=== PATIENT | male | born 1990 | race Caucasian/White ===

== ENCOUNTER 2021-11-09 21:40 | Inpatient (IN) | payer OTHER, SELFPAY ==
[2021-11-09 21:48] VITALS: BP 146/83; PULSE 104; RESP 19; TEMP 37.3; O2SAT 98; BMI 25.8
--- NOTE | 2021-11-09 22:00 | ED_ITS ---
HPI - Psych General Chief Complaint: Psychiatric Symptoms Stated Complaint: crisis Time Seen by Provider: 11/09/21 22:00 Source: patient Mode of arrival: EMS Limitations: no limitations History of Present Illness HPI Narrative: Patient section 12 from the [facility] clinic for paranoia, delusion responding to internal stimuli patient not sure why he is here asking for help not taking any medication patient denies any suicidal feeling Related Data Allergies Allergy/AdvReac Type Severity Reaction Status Date / Time No Known Allergies Allergy Unverified 03/20/21 14:35 Review of Systems Review of Systems: Yes all other systems are reviewed and are negative [facility] Social History Social History Advance Directives: No Advance Directives Information Provided: No Physical Exam Vital Signs: Vital Signs: Last Vital Signs Temp 99.2 F 11/09/21 21:48 Pulse 104 H 11/09/21 21:48 Resp 19 11/09/21 21:48 BP 146/83 H 11/09/21 21:48 Pulse Ox 98 11/09/21 21:48 O2 Del Method 11/09/21 21:48 BMI result Body Mass Index 25.8 Appearance: Alert. Oriented X3. No acute distress. Eyes: PERRLA, No Nystagmus ENT: Pharynx normal. Oral Mucosa moist Neck: Normal inspection. Neck supple. CVS: Normal heart rate and rhythm. Pulses normal. Respiratory: No respiratory distress. Equal air entry bilateral, no wheezing/rales/rhonchi Abdomen: Soft and nontender. Bowel sounds are present, no mass palpable, no CVA tenderness Skin: Skin warm and dry. Normal skin color. Normal skin turgor. Extremities: No lower extremity edema. No calf tenderness psych: Anxious denies any suicidal ideation no visual hallucination or auditory hallucination Neuro: Oriented X 3. No motor deficit. No sensory deficit.No cerebellar signs , cranial nerves II-XII intact MDM - Psych MDM Narrative Medical decision making narrative: Patient's Section 12 by crisis for delusion disorder etiology not very clear patient will be for bed search Lab Data Attestation: I reviewed the patient's lab results. Result diagrams: 11/09/21 22:31 11/09/21 22:31 Labs: Lab Results 09/18/22 09/18/22 09/18/22 Range/Units 22:17 22:31 22:31 WBC 8.6 (4.8-10.8) X10*3/uL RBC 4.99 (4.60-5.80) X10*6/uL Hgb 15.6 (14.0-18.0) g/dl Hct 45.3 (42.0-52.0) % MCV 90.8 (80.0-98.0) fL MCH 31.3 (27.0-33.0) pg MCHC 34.4 (31.0-36.0) g/dl RDW 12.5 (11.0-16.0) % Plt Count 302 (160-400) X10*3/uL MPV 9.1 L (9.4-12.4) fL Immature Gran % (Auto) 0.3 (0.0-0.4) % Neut % (Auto) 75.0 H (45-73) % Lymph % (Auto) 15.2 L (20-40) % [place] % (Auto) 7.0 (2-11) % Eos % (Auto) 1.9 (0-4) % Baso % (Auto) 0.6 (0-2) % Lymph # (Auto) 1.3 (1.2-4.9) X10*3/uL [place] # (Auto) 0.6 (0.1-1.2) X10*3/uL Eos # (Auto) 0.2 (0.0-0.4) X10*3/uL Baso # (Auto) 0.1 (0.0-0.2) X10*3/uL Abs Immat Gran (auto) 0.03 (0.00-0.03) X10*3/uL Absolute Neuts (auto) 6.5 (2.0-8.3) x10*3/uL Absolute Nucleated RBC 0.000 (0.0-0.012) X10*3/uL Nucleated RBC % (auto) 0.0 (0.0-0.2) /100WBC Sodium 143 (135-145) mmol/L Potassium 4.4 (3.3-5.1) mmol/L Chloride 105 (96-108) mmol/L Carbon Dioxide 26 (22-29) mmol/L Anion Gap 16 (12-20) BUN 9 (9-16) mg/dL Creatinine 1.00 (0.5-1.4) mg/dL Estim Creat Clear Calc 108.0 Estimated GFR > 60 Random Glucose 116 H (60-115) mg/dL Calcium 9.7 (8.4-10.2) mg/dL Total Bilirubin 1.0 (0.0-1.0) mg/dL AST 12 (5-37) U/L ALT 11 (0-40) U/L Alkaline Phosphatase 69 (39-117) U/L Total Protein 6.8 (6.5-8.0) g/dL Albumin 4.5 (3.5-5.0) g/dL COVID-19 ([facility]ISE) Negative (Negative) COVID-19 Clin Com See Note Discharge Plan Discharge Clinical Impression: Delusional disorder Patient Disposition: Still a Patient
[2021-11-09 22:36] LABS: MANUAL DIFF FLAG NO
[2021-11-09 22:38] LABS: Basophils Absolute Auto 0.1 X10*3/uL (0.0-0.2); Basophils Percent Auto 0.6 % (0-2); Eosinophils Absolute Auto 0.2 X10*3/uL (0.0-0.4); Eosinophils Percent Auto 1.9 % (0-4); Hematocrit 45.3 % (42.0-52.0); Hemoglobin 15.6 g/dl (14.0-18.0); Imm Gran Abs Auto 0.03 X10*3/uL (0.00-0.03); Imm Gran Pct Auto 0.3 % (0.0-0.4); Lymphocytes Absolute Auto 1.3 X10*3/uL (1.2-4.9); Lymphocytes Percent Auto 15.2 % (20-40); Mean Corpuscular HGB Conc 34.4 g/dl (31.0-36.0); Mean Corpuscular Hemoglobin 31.3 pg (27.0-33.0); Mean Corpuscular Volume 90.8 fL (80.0-98.0); Mean Platelet Volume 9.1 fL (9.4-12.4); Monocytes Absolute Auto 0.6 X10*3/uL (0.1-1.2); Neutrophils Absolute Auto 6.5 x10*3/uL (2.0-8.3); Platelet Count 302 X10*3/uL (160-400); Red Blood Count 4.99 X10*6/uL (4.60-5.80); Red Cell Distribution Width 12.5 % (11.0-16.0); White Blood Count 8.6 X10*3/uL (4.8-10.8)
[2021-11-09 22:52] LABS: COVID-19 Test Negative (Negative); IDNOW Serial# 16C4AD1C
[2021-11-09 22:55] LABS: Alanine Aminotransferase 11 U/L (0-40); Albumin Level 4.5 g/dL (3.5-5.0); Alkaline Phosphatase 69 U/L (39-117); Anion Gap 16 (12-20); Aspartate Amino Transferase 12 U/L (5-37); Blood Urea Nitrogen 9 mg/dL (9-16); Calcium 9.7 mg/dL (8.4-10.2); Carbon Dioxide 26 mmol/L (22-29); Chloride 105 mmol/L (96-108); Estimated Glomerular Filt Rate > 60; Glucose Random 116 mg/dL (60-115); Potassium 4.4 mmol/L (3.3-5.1); Sodium 143 mmol/L (135-145); Total Protein 6.8 g/dL (6.5-8.0)
--- NOTE | 2021-11-09 23:01 | ECG_ITS ---
Test Reason : MEDICAL CLEARANCE Blood Pressure : / mmHG Vent. Rate : 097 BPM Atrial Rate : 097 BPM P-R Int : 190 ms QRS Dur : 076 ms QT Int : 324 ms P-R-T Axes : 044 052 064 degrees QTc Int : 411 ms Normal sinus rhythm Normal ECG No previous ECGs available Referred By: Bc Coreas Electronically Signed By:ROSIE GAONA
[2021-11-09 23:29] VITALS: BP 146/88; PULSE 100; RESP 18; TEMP 37.3; O2SAT 97
[2021-11-10 04:58] LABS: Amphetamine Screen Urine Not Detected (Not Detect); Barbiturates, Urine Not Detected (Not Detect); Benzodiazepines Screen Urine Not Detected (Not Detect); Cannabinoid Screen Urine Not Detected (Not Detect); Cocaine Screen Urine Not Detected (Not Detect); Fentanyl, urine Not Detected (Not Detect); Opiate Screen Urine Not Detected (Not Detect); Phencyclidine Screen Urine Not Detected (Not Detect)
--- NOTE | 2021-11-10 05:48 | PC.NURSE ---
Patient was awake whole night, mostly sat in hallway calm talking to staff member, med rec completed/currently not on any medication, off his antidepressant for over 3 months, patient thinks he is OK and he doesn't have to be here, disposition per N from community is section 12 inpatient bed search, will continue to monitor.
--- NOTE | 2021-11-10 08:22 | PC.NURSE ---
PT WAS SITTING IN THE COMMUNITY AREA FOR MOST OF THE EVENING AND EARLY AM. HE ENGAGES IN APPROPRIATE CONVERSATION. HE IS SOFT SPOKEN AND ASKING WHAT THE PROCESS IS. HE RETURNED TO HIS ROOM . HIS MOTHER CALLED FOR AN UPDATE AND WAS REASSURED ABOUT HER SONS WELL BEING IN THE POD. AWAITING [facility] UPDATE
--- NOTE | 2021-11-10 16:42 | PC.NURSE ---
PT STILL HAS NOT SLEPT. HE REMAINS QUIET IN HIS ROOM
[2021-11-10 19:19] VITALS: BP 178/89; PULSE 99; RESP 18; TEMP 37.1; O2SAT 100
--- NOTE | 2021-11-10 20:40 | PC.NURSE ---
Addendum entered by Lupe Ocasio RN 11/10/21 20:42: Pt did not sign admission forms or consents. Original Note: Pt was admitted to from [facility] ED at 1915. Signed CV. Pt?s docn reports noncompliance with medication over months, paranoia, delusions, irritable, verbal aggression, denies SI/plan/intent.? UTOX: Negative all. Mood: Depressed; affect restricted. Does not make eye contact. No insight. Asking to leave, ?I?m not crazy.? ?Why am I here?? ? Substance use: Unable to assess.? MedHx: Unable to assess. Placed on high fall risk due to unknown hx. PsycheHx: Delusional disorder; MDD, single episode, unspecified.? VS at admission: 98.8, 99, 18, 178/89, 100%. ??During assessment pt is not engaged, looking at papers, asking why he is here and states, ?I don?t belong here.? Pt reports feeling unsafe but would not provide explanation. Offered prn for anxiety, pt did not answer. Not seen by provider.
[2021-11-11 08:30] VITALS: BP 140/86; PULSE 105; RESP 18; TEMP 36.7; O2SAT 98
[2021-11-11 09:20] LABS: Estimated Average Glucose 105 mg/dL; Hemoglobin A1c % 5.3 %
[2021-11-11 09:21] LABS: Cholesterol 146 mg/dL; HDL Cholesterol 52 mg/dL; LDL Cholesterol Calculated 78 mg/dl; Magnesium 1.9 mg/dL (1.6-2.6); Triglycerides 84 mg/dL
[2021-11-11 09:43] LABS: Free T4 (Free Thyroxine) 1.17 ng/dL (0.71-1.85); Thyroid Stimulating Hormone 1.24 uIU/mL (0.32-4.0)
[2021-11-11 10:07] LABS: Folate 6.3 ng/mL (> or = 4.0); Vitamin B12 422 pg/mL (200-900)
--- NOTE | 2021-11-11 13:32 | PC.NURSE ---
Patient went out [facility] door after staff opened door to leave unit. Refused to return unit, physical escort by staff back to unit. No injury to staff or patient reported or observed.
--- NOTE | 2021-11-11 16:18 | HO.PSYADMNOT ---
HPI Date of Service: 11/11/21 Chief Complaint: paranoia, delusional d/o HPI Subjective Notes: [place] Warning Narrative: pt called to the attention of crisis by his mother, who reported he was paranoid, delusional, irritable, and verbally aggressive and has been off of his medications for months now. she reported an acute worsening over the week prior to presentation. she stated he denied SI/HI to her. on interview with mold loft worker he expressed a great deal of anxiety about feeling trapped, feeling people are after him. he has no mental health providers currently. crisis staff described him as sporadically responding to internal stimuli. on interview with MD, pt is generally not cooeprative with answering questions, demonstrating clear paranoia and delusions about interviewer. in response to opening questions, pt replied, what happens if i refuse the hypnosis? he later began referring to this movie writer as Dr. Ayala, refusing to accept MD's identity as displayed on ID badge. he asserted MD has worked at [employer] and refused to accept MD's response that MD had never worked there. he demanded MD confess what he had done, but would not explain what he believed MD had done. he said, i'm sure you did the same shit to shagufta's kids, too, and would not explain who shagufta is. ultimately, typical historical information taken in a psychiatric evaluation was not able to be had. explained abdias's warning to pt, 3-day notice option. informed pt he believed pt has mental illness and should take medication and that such medication would be offered to him. per staff, pt did not sleep at all the night he was in the pod, nor did he sleep last night (at least two consecutive nights with no sleep). Past Psychiatric History: h/o outpt Tx with meds and therapist. details unknown. Medical Evaluation Reviewed: Yes PMFSH Family History: pt denied FH of mental illness or substance use disorder to crisis staff Social History: born in [place], raised mostly by his mother. has a younger brother. single, never , no children. unemployed. HS grad, had an IEP. bio-father not active in his life. Substance History: pt has denied substance use to crisis staff. Trauma History: christianne reported trauma to crisis staff but did not elaborate. Diagnostics Vital Signs (24Hr): Vital Signs - 24 hr 09/19/22 19:19 11/11/21 08:30 Temperature 98.8 F 98.1 F Pulse Rate 99 105 H Respiratory Rate 18 18 Blood Pressure 178/89 H 140/86 H Pulse Oximetry 100 98 Oxygen Delivery Method Room Air Room Air BMI result Body Mass Index 25.8 Labs Results: 11/09/21 22:31 11/09/21 22:31 Labs: Laboratory Results - last 48 hr 11/09/21 11/09/21 11/09/21 22:17 22:31 22:31 WBC 8.6 RBC 4.99 Hgb 15.6 Hct 45.3 MCV 90.8 MCH 31.3 MCHC 34.4 RDW 12.5 Plt Count 302 MPV 9.1 L Immature Gran % (Auto) 0.3 Neut % (Auto) 75.0 H Lymph % (Auto) 15.2 L [place] % (Auto) 7.0 Eos % (Auto) 1.9 Baso % (Auto) 0.6 Lymph # (Auto) 1.3 [place] # (Auto) 0.6 Eos # (Auto) 0.2 Baso # (Auto) 0.1 Abs Immat Gran (auto) 0.03 Absolute Neuts (auto) 6.5 Absolute Nucleated RBC 0.000 Nucleated RBC % (auto) 0.0 Sodium 143 Potassium 4.4 Chloride 105 Carbon Dioxide 26 Anion Gap 16 BUN 9 Creatinine 1.00 Estim Creat Clear Calc 108.0 Estimated GFR > 60 Random Glucose 116 H Estimat Average Glucose Hemoglobin A1c % Calcium 9.7 Magnesium Total Bilirubin 1.0 AST 12 ALT 11 Alkaline Phosphatase 69 Total Protein 6.8 Albumin 4.5 Triglycerides Cholesterol LDL Cholesterol, Calc HDL Cholesterol Vitamin B12 Folate TSH Free T4 Urine Opiates Screen Urine Fentanyl Screen Ur Barbiturates Screen Ur Phencyclidine Scrn Ur Amphetamines Screen U Benzodiazepines Scrn Urine Cocaine Screen U Marijuana (THC) Screen COVID-19 ([facility]ISE) Negative COVID-19 Clin Com See Note 11/10/21 11/11/21 11/11/21 04:31 08:52 08:52 WBC RBC Hgb Hct MCV MCH MCHC RDW Plt Count MPV Immature Gran % (Auto) Neut % (Auto) Lymph % (Auto) [place] % (Auto) Eos % (Auto) Baso % (Auto) Lymph # (Auto) [place] # (Auto) Eos # (Auto) Baso # (Auto) Abs Immat Gran (auto) Absolute Neuts (auto) Absolute Nucleated RBC Nucleated RBC % (auto) Sodium Potassium Chloride Carbon Dioxide Anion Gap BUN Creatinine Estim Creat Clear Calc Estimated GFR Random Glucose Estimat Average Glucose 105 Hemoglobin A1c % 5.3 Calcium Magnesium 1.9 Total Bilirubin AST ALT Alkaline Phosphatase Total Protein Albumin Triglycerides 84 Cholesterol 146 LDL Cholesterol, Calc 78 HDL Cholesterol 52 Vitamin B12 Folate TSH 1.24 Free T4 1.17 Urine Opiates Screen Not Detected Urine Fentanyl Screen Not Detected Ur Barbiturates Screen Not Detected Ur Phencyclidine Scrn Not Detected Ur Amphetamines Screen Not Detected U Benzodiazepines Scrn Not Detected Urine Cocaine Screen Not Detected U Marijuana (THC) Screen Not Detected COVID-19 ([facility]ISE) COVID-19 [facility] 11/11/21 08:52 WBC RBC Hgb Hct MCV MCH MCHC RDW Plt Count MPV Immature Gran % (Auto) Neut % (Auto) Lymph % (Auto) [place] % (Auto) Eos % (Auto) Baso % (Auto) Lymph # (Auto) [place] # (Auto) Eos # (Auto) Baso # (Auto) Abs Immat Gran (auto) Absolute Neuts (auto) Absolute Nucleated RBC Nucleated RBC % (auto) Sodium Potassium Chloride Carbon Dioxide Anion Gap BUN Creatinine Estim Creat Clear Calc Estimated GFR Random Glucose Estimat Average Glucose Hemoglobin A1c % Calcium Magnesium Total Bilirubin AST ALT Alkaline Phosphatase Total Protein Albumin Triglycerides Cholesterol LDL Cholesterol, Calc HDL Cholesterol Vitamin B12 422 Folate 6.3 TSH Free T4 Urine Opiates Screen Urine Fentanyl Screen Ur Barbiturates Screen Ur Phencyclidine Scrn Ur Amphetamines Screen U Benzodiazepines Scrn Urine Cocaine Screen U Marijuana (THC) Screen COVID-19 ([facility]) COVID-19 [facility] Meds/Allergies Meds Home Medications Medication Instructions Recorded Confirmed Type No Known Home Meds 11/10/21 11/10/21 History Allergies Allergies Allergy/AdvReac Type Severity Reaction Status Date / Time No Known Allergies Allergy Unverified 03/20/21 14:35 Mental Status Exam Mental Status Exam Narrative: agitated, bizarre, periods of delayed responses/action. PMA of apparent fidgetiness. not cooperative with interview. speech variable but generally increased in rate, normal amount, normal loudness, normal latency, normal prosody. thoughts disorganized, bizarre, paranoid, and delusional. affect hyper-intense, min-labile. mood not assessed. no SI/HI/AVH expressed. Assessment & Plan Assessment & Plan (1) Bipolar disorder: Status: Acute Code(s): F31.9 - Bipolar disorder, unspecified Plan offer zyprexa 10 mg at HS. T/C need for commitment. Patient educated on: diagnosis and medication risk/benefits Reason for continued inpatient stay Substantial Risk for: inability to function
[2021-11-12 10:00] VITALS: RESP 16; TEMP 36.4
--- NOTE | 2021-11-12 14:02 | P.PNPSI_ITS ---
Subjective Subjective Date of Service: 11/12/21 Reason For Visit: paranoia, delusional d/o Interim History: pt calm and variably cooperative. answers many questions with silence. seen with SW. MD explains diagnostic hypothesis. lots of long periods of MD and SW waiting for pt to answer questions, then moving on with other tacks. pt is vague and evasive in general, but ultimately states he will give the medication a try this evening (zyprexa 10 mg at HS). per staff, pt attempted to elope yesterday. poor PO intake. attended OT group. denies anxiety. feels not safe in here at all. paranoid, suspicious. refusing medications, refusing VS. afraid to shower for fear of being locked in. slept only about 2 hours. per SW, extremely labile, going from tearful to angry very quickly. Mental Status Exam Mental Status Exam Narrative: less agitated. bizarre, periods of very delayed responses/action. no PMA/PMR. variably cooperative with interview. speech variable but generally increased in rate, decr amount, normal loudness, incr latency, normal prosody. thoughts dis organized, bizarre, paranoid, and delusional. affect hyper-intense, non-labile. mood not assessed. no SI/HI/AVH expressed. Diagnostics Vital Signs (24Hr): BMI result Body Mass Index 25.8 Labs Results: 11/09/21 22:31 11/09/21 22:31 Labs: Laboratory Results - last 48 hr 11/11/21 11/11/21 11/11/21 08:52 08:52 08:52 Estimat Average Glucose 105 Hemoglobin A1c % 5.3 Magnesium 1.9 Triglycerides 84 Cholesterol 146 LDL Cholesterol, Calc 78 HDL Cholesterol 52 Vitamin B12 422 Folate 6.3 TSH 1.24 Free T4 1.17 Medications Medications Current Medications Acetaminophen (Acetaminophen 325 Mg Tablet) 650 mg PO Q6H PRN PRN Reason: Headache/Pain Mild Scale (1-3) Al Hydroxide/Mg Hydroxide (Magnesium Hydrox/Alum Hydrox 30 Ml Oral.Susp) 30 ml PO Q6H PRN PRN Reason: Heartburn/Nausea Hydroxyzine HCl (Hydroxyzine Hcl 25 Mg Tablet) 25 mg PO Q6H PRN PRN Reason: Anxiety Magnesium Hydroxide (Milk Of Magnesia 30 Ml Oral.Susp) 30 ml PO DAILY PRN PRN Reason: Constipation Olanzapine (Olanzapine Odt 10 Mg Tab.Rapdis) 10 mg TRANSLINGU BEDTIME SMITHA Last Admin: 11/11/21 21:30 Dose: Not Given Trazodone HCl (Trazodone Hcl 50 Mg Tablet) 50 mg PO BEDTIME PRN PRN Reason: Insomnia Allergies Allergies Allergy/AdvReac Type Severity Reaction Status Date / Time No Known Allergies Allergy Unverified 03/20/21 14:35 Assessment & Plan Assessment & Plan (1) Bipolar disorder: Status: Acute Code(s): F31.9 - Bipolar disorder, unspecified Plan offer zyprexa 10 mg at HS. T/C need for commitment. I spent ___25___ minutes with the patient and/or on the patient floor today, greater than?50% of which was spent counseling/coordinating care. Patient educated on: diagnosis Reason for contiued inpatient stay Substantial Risk for: harm to self, harm to others, inability to function and rapid decompensation
[2021-11-12 19:20] VITALS: BP 134/92; PULSE 99; RESP 16; TEMP 36.7; O2SAT 100
[2021-11-12] MEDS: OLANZapine ODT 10 MG TAB.RAPDIS TRANSLINGU (20:56)
[2021-11-13 08:30] VITALS: BP 140/92; PULSE 78; RESP 18; TEMP 36.6; O2SAT 100
--- NOTE | 2021-11-13 14:49 | P.PNPSI_ITS ---
Subjective Subjective Date of Service: 11/13/21 Reason For Visit: paranoia, delusional d/o Subjective Notes: Conditional Voluntary Interim History: Pt thought blocking-staring, delayed response. He does not answer much of the questions. He reports he agreed to take medications last night, does not think it works. When asked about what he hopes medications to help him with, he just stares and turns to the side. some degree of catatonic s/s- agrees to try ativan challenge. Review of Systems Review of Systems Yes all other systems are reviewed and are negative Mental Status Exam Mental Status Exam Narrative: less agitated. bizarre, periods of very delayed responses/action. no PMA/PMR. variably cooperative with interview. speech variable but generally increased in rate, decr amount, normal loudness, incr latency, normal prosody. thoughts disorganized, bizarre, paranoid, and delusional. affect hyper-intense, non- labile. mood not assessed. no SI/HI/AVH expressed. Diagnostics Vital Signs (24Hr): Vital Signs - 24 hr 11/12/21 19:20 11/13/21 08:30 Temperature 98.1 F 97.8 F Pulse Rate 99 78 Respiratory Rate 16 18 Blood Pressure 134/92 H 140/92 H Pulse Oximetry 100 100 Oxygen Delivery Method Room Air Room Air BMI result Body Mass Index 25.8 Labs Results: 11/09/21 22:31 11/09/21 22:31 Medications Medications Current Medications Acetaminophen (Acetaminophen 325 Mg Tablet) 650 mg PO Q6H PRN PRN Reason: Headache/Pain Mild Scale (1-3) Al Hydroxide/Mg Hydroxide (Magnesium Hydrox/Alum Hydrox 30 Ml Oral.Susp) 30 ml PO Q6H PRN PRN Reason: Heartburn/Nausea Hydroxyzine HCl (Hydroxyzine Hcl 25 Mg Tablet) 25 mg PO Q6H PRN PRN Reason: Anxiety Magnesium Hydroxide (Milk Of Magnesia 30 Ml Oral.Susp) 30 ml PO DAILY PRN PRN Reason: Constipation Olanzapine (Olanzapine Odt 10 Mg Tab.Rapdis) 10 mg TRANSLINGU BEDTIME SMITHA Last Admin: 11/12/21 20:56 Dose: 10 mg Trazodone HCl (Trazodone Hcl 50 Mg Tablet) 50 mg PO BEDTIME PRN PRN Reason: Insomnia Allergies Allergies Allergy/AdvReac Type Severity Reaction Status Date / Time No Known Allergies Allergy Unverified 03/20/21 14:35 Assessment & Plan Assessment & Plan (1) Bipolar disorder: Status: Acute Code(s): F31.9 - Bipolar disorder, unspecified Plan offer zyprexa 10 mg at HS. T/C need for commitment. 11/13 continue olanzapine, given ativan for catatonia s/s thought blocking, blank stare, delayed response. I spent minutes with the patient and/or on the patient floor today, greater than?50% of which was spent counseling/coordinating care. Reason for contiued inpatient stay Substantial Risk for: inability to function
[2021-11-13] MEDS: LORazepam 1 MG TABLET 2 MG PO (15:46)
[2021-11-13 19:00] VITALS: BP 143/78; PULSE 103; RESP 16; TEMP 36.7; O2SAT 100
[2021-11-13] MEDS: OLANZapine ODT 10 MG TAB.RAPDIS TRANSLINGU (20:39)
[2021-11-13] MEDS: LORazepam 1 MG TABLET PO (20:39)
[2021-11-14 08:30] VITALS: RESP 18
[2021-11-14 10:00] VITALS: PULSE 89; RESP 18; TEMP 36.7; O2SAT 100
[2021-11-14] MEDS: LORazepam 1 MG TABLET PO ×4 (10:13→20:43)
--- NOTE | 2021-11-14 14:55 | HO.PSYCHPN ---
Subjective Subjective Date of Service: 11/14/21 Reason For Visit: paranoia, delusional d/o Interim History: amenable to come for interview. more slowed down than day of admission. long pauses, no agitated speech. he feels he is sleeping well, states his mood is OK, feeling safe on unit with peers and staff. per staff, guarded, paranoid, napping. ativan 2 mg at 3:30 pm. afterward doing laundry, yoga, stretching. Mental Status Exam Mental Status Exam Narrative: not agitated. bizarre, periods of very delayed responses/action. no PMA/PMR. variably cooperative with interview. speech decr in rate, decr amount, normal loudness, incr latency, normal prosody. thoughts linear in very brief responses to questions. no expression of delusions or paranoia. affect hypo-intense, non-labile. mood OK. no SI/HI/AVH expressed. Diagnostics Vital Signs (24Hr): Vital Signs - 24 hr 11/13/21 19:00 11/14/21 08:30 11/14/21 10:00 Temperature 98.1 F 98.1 F Pulse Rate 103 H 89 Respiratory Rate 16 18 18 Blood Pressure 143/78 H Pulse Oximetry 100 100 Oxygen Delivery Method Room Air Room Air BMI result Body Mass Index 25.8 Labs Results: 11/09/21 22:31 11/09/21 22:31 Medications Medications Current Medications Acetaminophen (Acetaminophen 325 Mg Tablet) 650 mg PO Q6H PRN PRN Reason: Headache/Pain Mild Scale (1-3) Al Hydroxide/Mg Hydroxide (Magnesium Hydrox/Alum Hydrox 30 Ml Oral.Susp) 30 ml PO Q6H PRN PRN Reason: Heartburn/Nausea Hydroxyzine HCl (Hydroxyzine Hcl 25 Mg Tablet) 25 mg PO Q6H PRN PRN Reason: Anxiety Lorazepam (Lorazepam 1 Mg Tablet) 1 mg PO QID [facility] Last Admin: 11/14/21 14:02 Dose: 1 mg Magnesium Hydroxide (Milk Of Magnesia 30 Ml Oral.Susp) 30 ml PO DAILY PRN PRN Reason: Constipation Olanzapine (Olanzapine Odt 10 Mg Tab.Rapdis) 10 mg TRANSLINGU BEDTIME [facility] Last Admin: 11/13/21 20:39 Dose: 10 mg Trazodone HCl (Trazodone Hcl 50 Mg Tablet) 50 mg PO BEDTIME PRN PRN Reason: Insomnia Allergies Allergies Allergy/AdvReac Type Severity Reaction Status Date / Time No Known Allergies Allergy Unverified 03/20/21 14:35 Assessment & Plan Assessment & Plan (1) Bipolar disorder: Status: Acute Code(s): F31.9 - Bipolar disorder, unspecified Plan offer zyprexa 10 mg at HS. T/C need for commitment. 11/13 continue olanzapine, given ativan for catatonia s/s thought blocking, blank stare, delayed response. 11/14: pt compliant with HS zyprexa x 2 nights. slowed down, looking catatonic, seems to have responded to ativan started yesterday. ativan 1 TID yesterday escalated to 1 QID today due to continuing to appear quite slowed this morning after initial ativan dose of the day. I spent ___20___ minutes with the patient and/or on the patient floor today, greater than?50% of which was spent counseling/coordinating care. Reason for contiued inpatient stay Substantial Risk for: inability to function and rapid decompensation
[2021-11-14 18:00] VITALS: BP 131/71; PULSE 97; RESP 14; TEMP 36.7; O2SAT 99
[2021-11-14] MEDS: OLANZapine ODT 10 MG TAB.RAPDIS TRANSLINGU (20:43)
[2021-11-15 06:00] VITALS: BP 135/87; PULSE 102; RESP 18; TEMP 36.8; O2SAT 98
--- NOTE | 2021-11-15 08:07 | P.PNPSI_ITS ---
Subjective Subjective Date of Service: 11/15/21 Reason For Visit: paranoia, delusional d/o Subjective Notes: Conditional Voluntary Healthcare Proxy: No Guardianship: No Medical Problems Affecting Mental Status: No Interim History: Patient was seen and discussed in rounds today. Records and plans were reviewed. He continues to be mostly isolative, guarded with some paranoid ideations and delusions. Affect is flat. He does have some thought blocking. Attending some groups including art. He is med compliant. Eating and sleeping adequately. No complaints or side effects. No changes were implemented today. He had some questions about his Ativan order which was clarified and he was comfortable with that. Side effects from medications: No Review of Systems Review of Systems Yes all other systems are reviewed and are negative Diagnostics Vital Signs (24Hr): Vital Signs - 24 hr 11/14/21 08:30 11/14/21 10:00 11/14/21 18:00 Temperature 98.1 F 98.1 F Pulse Rate 89 97 Respiratory Rate 18 18 14 Blood Pressure 131/71 Pulse Oximetry 100 99 Oxygen Delivery Method Room Air Room Air BMI result Body Mass Index 25.8 Labs Results: 11/09/21 22:31 11/09/21 22:31 Medications Medications Current Medications Acetaminophen (Acetaminophen 325 Mg Tablet) 650 mg PO Q6H PRN PRN Reason: Headache/Pain Mild Scale (1-3) Al Hydroxide/Mg Hydroxide (Magnesium Hydrox/Alum Hydrox 30 Ml Oral.Susp) 30 ml PO Q6H PRN PRN Reason: Heartburn/Nausea Hydroxyzine HCl (Hydroxyzine Hcl 25 Mg Tablet) 25 mg PO Q6H PRN PRN Reason: Anxiety Lorazepam (Lorazepam 1 Mg Tablet) 1 mg PO QID [facility] Last Admin: 11/14/21 20:43 Dose: 1 mg Magnesium Hydroxide (Milk Of Magnesia 30 Ml Oral.Susp) 30 ml PO DAILY PRN PRN Reason: Constipation Olanzapine (Olanzapine Odt 10 Mg Tab.Rapdis) 10 mg TRANSLINGU BEDTIME [facility] Last Admin: 11/14/21 20:43 Dose: 10 mg Trazodone HCl (Trazodone Hcl 50 Mg Tablet) 50 mg PO BEDTIME PRN PRN Reason: Insomnia Allergies Allergies Allergy/AdvReac Type Severity Reaction Status Date / Time No Known Allergies Allergy Unverified 03/20/21 14:35 Assessment & Plan Assessment & Plan (1) Bipolar disorder: Status: Acute Code(s): F31.9 - Bipolar disorder, unspecified Plan offer zyprexa 10 mg at HS. T/C need for commitment. 11/13 continue olanzapine, given ativan for catatonia s/s thought blocking, blank stare, delayed response. 11/14: pt compliant with HS zyprexa x 2 nights. slowed down, looking catatonic, seems to have responded to ativan started yesterday. ativan 1 TID yesterday escalated to 1 QID today due to continuing to appear quite slowed this morning after initial ativan dose of the day. 11/15: Continue current regimen and plans I spent minutes with the patient and/or on the patient floor today, greater than?50% of which was spent counseling/coordinating care. Patient educated on: medication risk/benefits Reason for contiued inpatient stay Substantial Risk for: med/psych decompensation
[2021-11-15] MEDS: LORazepam 1 MG TABLET PO ×4 (11:20→21:07)
[2021-11-15 18:00] VITALS: BP 124/83; PULSE 98; RESP 16; TEMP 36.7; O2SAT 100
[2021-11-15] MEDS: OLANZapine ODT 10 MG TAB.RAPDIS TRANSLINGU (21:07)
--- NOTE | 2021-11-16 01:04 | PC.NURSE ---
Pt A&O, INAD, cooperative with assessment and medication adherent. Denies SI/HI/AH/VH/safety concerns. Slow responses but appears more engaged and interactive than during prior assessments. Pt asking about discharging. He was encouraged to talk with social workers Wednesday and agrees.
[2021-11-16 09:07] VITALS: BP 123/90; PULSE 73; RESP 18; TEMP 36.4; O2SAT 98
--- NOTE | 2021-11-16 09:28 | HO.PSYCHPN ---
Subjective Subjective Date of Service: 11/16/21 Reason For Visit: paranoia, delusional d/o Subjective Notes: Conditional Voluntary Healthcare Proxy: No Guardianship: No Medical Problems Affecting Mental Status: No Interim History: Patient was seen and discussed in rounds today. Records and plans were reviewed. He has been mostly isolative and continues to be guarded with minimal social interaction. He had some questions about his discharge plans which I suggested talking to the staff tomorrow. He has been flat in his affect and some thought blocking still is present. Eating and sleeping adequately. No complaints or side effects. No changes were done today Side effects from medications: No Review of Systems Review of Systems Yes all other systems are reviewed and are negative Mental Status Exam Mental Status Exam Narrative: not agitated. bizarre, periods of very delayed responses/action. no PMA/PMR. variably cooperative with interview. speech decr in rate, decr amount, normal loudness, incr latency, normal prosody. thoughts linear in very brief responses to questions. no expression of delusions or paranoia. affect hypo-intense, non-labile. mood OK. no SI/HI/AVH expressed. Diagnostics Vital Signs (24Hr): Vital Signs - 24 hr 11/15/21 18:00 11/16/21 09:07 Temperature 98.1 F 97.6 F Pulse Rate 98 73 Respiratory Rate 16 18 Blood Pressure 124/83 123/90 H Pulse Oximetry 100 98 Oxygen Delivery Method Room Air Room Air BMI result Body Mass Index 25.8 Labs Results: 11/09/21 22:31 11/09/21 22:31 Medications Medications Current Medications Acetaminophen (Acetaminophen 325 Mg Tablet) 650 mg PO Q6H PRN PRN Reason: Headache/Pain Mild Scale (1-3) Al Hydroxide/Mg Hydroxide (Magnesium Hydrox/Alum Hydrox 30 Ml Oral.Susp) 30 ml PO Q6H PRN PRN Reason: Heartburn/Nausea Hydroxyzine HCl (Hydroxyzine Hcl 25 Mg Tablet) 25 mg PO Q6H PRN PRN Reason: Anxiety Lorazepam (Lorazepam 1 Mg Tablet) 1 mg PO QID [facility] Last Admin: 11/15/21 21:07 Dose: 1 mg Magnesium Hydroxide (Milk Of Magnesia 30 Ml Oral.Susp) 30 ml PO DAILY PRN PRN Reason: Constipation Olanzapine (Olanzapine Odt 10 Mg Tab.Rapdis) 10 mg TRANSLINGU BEDTIME [facility] Last Admin: 11/15/21 21:07 Dose: 10 mg Trazodone HCl (Trazodone Hcl 50 Mg Tablet) 50 mg PO BEDTIME PRN PRN Reason: Insomnia Allergies Allergies Allergy/AdvReac Type Severity Reaction Status Date / Time No Known Allergies Allergy Unverified 03/20/21 14:35 Assessment & Plan Assessment & Plan (1) Bipolar disorder: Status: Acute Code(s): F31.9 - Bipolar disorder, unspecified Plan offer zyprexa 10 mg at HS. T/C need for commitment. 11/13 continue olanzapine, given ativan for catatonia s/s thought blocking, blank stare, delayed response. 11/14: pt compliant with HS zyprexa x 2 nights. slowed down, looking catatonic, seems to have responded to ativan started yesterday. ativan 1 TID yesterday escalated to 1 QID today due to continuing to appear quite slowed this morning after initial ativan dose of the day. 11/15: Continue current regimen and plans 11/16: Continue current plans and regimen I spent minutes with the patient and/or on the patient floor today, greater than?50% of which was spent counseling/coordinating care. Reason for contiued inpatient stay Substantial Risk for: med/psych decompensation
[2021-11-16] MEDS: LORazepam 1 MG TABLET PO ×4 (09:31→21:33)
[2021-11-16 21:32] VITALS: BP 124/82; PULSE 116; RESP 16; TEMP 36.7; O2SAT 97
[2021-11-16] MEDS: OLANZapine ODT 10 MG TAB.RAPDIS TRANSLINGU (21:33)
[2021-11-16] MEDS: Acetaminophen 325 MG TABLET 650 MG PO (21:36)
[2021-11-17] MEDS: hydrOXYzine HCL 25 MG TABLET PO (01:38)
[2021-11-17] MEDS: LORazepam 1 MG TABLET PO ×4 (09:02→22:26)
[2021-11-17 09:21] VITALS: BP 128/78; PULSE 82; RESP 16; TEMP 36.7; O2SAT 99
[2021-11-17] MEDS: Lithium Carbonate ER 450 MG TABLET.ER PO ×2 (10:41→22:24)
--- NOTE | 2021-11-17 12:13 | P.PNPSI_ITS ---
Subjective Subjective Date of Service: 11/17/21 Reason For Visit: paranoia, delusional d/o Interim History: less paranoid, more cooperative today. discuss bipolar D/O Dx hypothesis and Tx thereof. willing to try lithium. R/B discussed, including renal damage. planning to start ativan taper tomorrow. no other complaints or requests, asks how much longer he will need to stay in order for lithium trial. per staff, some difficulty sleeping. otherwise no notable events or behaviors. Mental Status Exam Mental Status Exam Narrative: not agitated. less bizarre, periods of delayed responses/action. no PMA/PMR. generally cooperative with interview. speech decr in rate, decr amount, normal loudness, incr latency, flattened prosody. thoughts linear. no overt expression of delusions or paranoia, but remains mistrustful and guarded. affect hypo-intense, non-labile. mood OK. no SI/HI/AVH expressed. Diagnostics Vital Signs (24Hr): Vital Signs - 24 hr 11/16/21 21:32 11/17/21 09:21 Temperature 98.1 F 98.1 F Pulse Rate 116 H 82 Respiratory Rate 16 16 Blood Pressure 124/82 128/78 Pulse Oximetry 97 99 Oxygen Delivery Method Room Air Room Air BMI result Body Mass Index 25.8 Labs Results: 11/09/21 22:31 11/09/21 22:31 Medications Medications Current Medications Acetaminophen (Acetaminophen 325 Mg Tablet) 650 mg PO Q6H PRN PRN Reason: Headache/Pain Mild Scale (1-3) Last Admin: 11/16/21 21:36 Dose: 650 mg Al Hydroxide/Mg Hydroxide (Magnesium Hydrox/Alum Hydrox 30 Ml Oral.Susp) 30 ml PO Q6H PRN PRN Reason: Heartburn/Nausea Hydroxyzine HCl (Hydroxyzine Hcl 25 Mg Tablet) 25 mg PO Q6H PRN PRN Reason: Anxiety Last Admin: 11/17/21 01:38 Dose: 25 mg [place] Carbonate (Loop Carbonate Er 450 Mg Tablet.Er) 450 mg PO BID [facility] Last Admin: 11/17/21 10:41 Dose: 450 mg Lorazepam (Lorazepam 1 Mg Tablet) 1 mg PO QID [facility] Last Admin: 11/17/21 09:02 Dose: 1 mg Magnesium Hydroxide (Milk Of Magnesia 30 Ml Oral.Susp) 30 ml PO DAILY PRN PRN Reason: Constipation Olanzapine (Olanzapine Odt 10 Mg Tab.Rapdis) 10 mg TRANSLINGU BEDTIME [facility] Last Admin: 11/16/21 21:33 Dose: 10 mg Olanzapine (Olanzapine Odt 10 Mg Tab.Rapdis) 5 mg TRANSLINGU BEDTIME [facility] Allergies Allergies Allergy/AdvReac Type Severity Reaction Status Date / Time No Known Allergies Allergy Unverified 03/20/21 14:35 Assessment & Plan Assessment & Plan (1) Bipolar disorder: Status: Acute Code(s): F31.9 - Bipolar disorder, unspecified Plan offer zyprexa 10 mg at HS. T/C need for commitment. 11/13 continue olanzapine, given ativan for catatonia s/s thought blocking, blank stare, delayed response. 11/14: pt compliant with HS zyprexa x 2 nights. slowed down, looking catatonic, seems to have responded to ativan started yesterday. ativan 1 TID yesterday escalated to 1 QID today due to continuing to appear quite slowed this morning after initial ativan dose of the day. 11/15: Continue current regimen and plans 11/16: Continue current plans and regimen 11/17: start lithium 450 BID. begin ativan taper tomorrow. add zyprexa 5 QHS PRN insomnia. calm, cooperative, no overt paranoia or delusional content. I spent ___25___ minutes with the patient and/or on the patient floor today, greater than?50% of which was spent counseling/coordinating care. Patient educated on: diagnosis and medication risk/benefits Reason for contiued inpatient stay Substantial Risk for: inability to function and rapid decompensation
--- NOTE | 2021-11-17 17:03 | PC.NURSE ---
Patient reports that he has never smoked tobacco
[2021-11-17 22:00] VITALS: BP 150/98; PULSE 98; RESP 18; TEMP 36.8; O2SAT 97
[2021-11-17] MEDS: OLANZapine ODT 10 MG TAB.RAPDIS TRANSLINGU (22:25)
[2021-11-17] MEDS: OLANZapine ODT 10 MG TAB.RAPDIS 5 MG TRANSLINGU (22:25)
[2021-11-18] MEDS: LORazepam 1 MG TABLET PO ×3 (09:09→21:06)
[2021-11-18] MEDS: Lithium Carbonate ER 450 MG TABLET.ER PO ×2 (09:09→21:07)
[2021-11-18 10:46] VITALS: BP 124/79; PULSE 80; RESP 16; TEMP 36.6; O2SAT 98
--- NOTE | 2021-11-18 14:09 | P.PNPSI_ITS ---
Subjective Subjective Date of Service: 11/18/21 Reason For Visit: paranoia, delusional d/o Interim History: faster responses, less irritable and paranoid. still carrying around his belongings in a paper bag. mood a little better, which he attributes to being not as in my head, i guess. agreeable to taper ativan, going from 1 mg QID to 1 mg TID today. per staff, carrying things in bag. attended art group. guarded. internally preoccupied. asking for his crystals. vague, evasive. denies AVH. med-compliant. Mental Status Exam Mental Status Exam Narrative: not agitated. fewer periods of delayed responses/action. no PMA/PMR. generally cooperative with interview. speech decr in rate, decr amount, normal loudness, incr latency, flattened prosody. thoughts linear. no overt expression of delusions or paranoia, but seems less mistrustful and guarded. affect hypo-intense, non-labile. mood a little better. no SI/HI/AVH expressed. Diagnostics Vital Signs (24Hr): Vital Signs - 24 hr 11/17/21 22:00 11/18/21 10:46 Temperature 98.3 F 97.9 F Pulse Rate 98 80 Respiratory Rate 18 16 Blood Pressure 150/98 H 124/79 Pulse Oximetry 97 98 Oxygen Delivery Method Room Air Room Air BMI result Body Mass Index 25.8 Labs Results: 11/09/21 22:31 11/09/21 22:31 Medications Medications Current Medications Acetaminophen (Acetaminophen 325 Mg Tablet) 650 mg PO Q6H PRN PRN Reason: Headache/Pain Mild Scale (1-3) Last Admin: 11/16/21 21:36 Dose: 650 mg Al Hydroxide/Mg Hydroxide (Magnesium Hydrox/Alum Hydrox 30 Ml Oral.Susp) 30 ml PO Q6H PRN PRN Reason: Heartburn/Nausea Hydroxyzine HCl (Hydroxyzine Hcl 25 Mg Tablet) 25 mg PO Q6H PRN PRN Reason: Anxiety Last Admin: 11/17/21 01:38 Dose: 25 mg [place] Carbonate ([place] Carbonate Er 450 Mg Tablet.Er) 450 mg PO BID [facility] Last Admin: 11/18/21 09:09 Dose: 450 mg Lorazepam (Lorazepam 1 Mg Tablet) 1 mg PO TID [facility] Magnesium Hydroxide (Milk Of Magnesia 30 Ml Oral.Susp) 30 ml PO DAILY PRN PRN Reason: Constipation Olanzapine (Olanzapine Odt 10 Mg Tab.Rapdis) 10 mg TRANSLINGU BEDTIME [facility] Last Admin: 11/17/21 22:25 Dose: 10 mg Olanzapine (Olanzapine Odt 10 Mg Tab.Rapdis) 5 mg TRANSLINGU BEDTIME [facility] Last Admin: 11/17/21 22:25 Dose: 5 mg Allergies Allergies Allergy/AdvReac Type Severity Reaction Status Date / Time No Known Allergies Allergy Unverified 03/20/21 14:35 Assessment & Plan Assessment & Plan (1) Bipolar disorder: Status: Acute Code(s): F31.9 - Bipolar disorder, unspecified Plan offer zyprexa 10 mg at HS. T/C need for commitment. 11/13 continue olanzapine, given ativan for catatonia s/s thought blocking, blank stare, delayed response. 11/14: pt compliant with HS zyprexa x 2 nights. slowed down, looking catatonic, seems to have responded to ativan started yesterday. ativan 1 TID yesterday escalated to 1 QID today due to continuing to appear quite slowed this morning after initial ativan dose of the day. 11/15: Continue current regimen and plans 11/16: Continue current plans and regimen 11/17: start lithium 450 BID. begin ativan taper tomorrow. add zyprexa 5 QHS PRN insomnia. calm, cooperative, no overt paranoia or delusional content. 11/18: decrease ativan to 1 mg TID, otherwise continue current mgmt. I spent ___20___ minutes with the patient and/or on the patient floor today, greater than?50% of which was spent counseling/coordinating care. Reason for contiued inpatient stay Substantial Risk for: inability to function and rapid decompensation
[2021-11-18 21:05] VITALS: BP 135/77; PULSE 104; RESP 16; TEMP 36.7; O2SAT 97
[2021-11-18] MEDS: OLANZapine ODT 10 MG TAB.RAPDIS TRANSLINGU (21:06)
[2021-11-18] MEDS: OLANZapine ODT 10 MG TAB.RAPDIS 5 MG TRANSLINGU (21:07)
--- NOTE | 2021-11-18 21:20 | PC.NURSE ---
PT SIGNED 3-DAY ON 11/18. 3-DAY UP ON 11/21.
[2021-11-19] MEDS: LORazepam 1 MG TABLET PO ×2 (08:11→21:11)
[2021-11-19] MEDS: Lithium Carbonate ER 450 MG TABLET.ER PO ×2 (08:11→21:10)
[2021-11-19 08:36] VITALS: BP 133/87; PULSE 86; RESP 16; TEMP 36.7; O2SAT 100
--- NOTE | 2021-11-19 13:08 | P.PNPSI_ITS ---
Subjective Subjective Date of Service: 11/19/21 Reason For Visit: paranoia, delusional d/o Interim History: pt reports feeling not bad. states he is sleeping well, which is what staff report as well. feels his mood state is about the same as yesterday. remains suspicious and paranoid, but more engageable than early on. planning to discharge wednesday, not able to be dissuaded from such. discuss lithium at some length, encourage pt to take 1050. he requests lithium med ed sheet prior to agreeing. per staff, attending groups. denies anx/dep. eating and sleeping. cooperative, calm. carrying bag of belongings around with him. more social than earlier on. Mental Status Exam Mental Status Exam Narrative: not agitated. far less delayed. no PMA/PMR. generally cooperative with interview. speech decr in rate, decr amount, normal loudness, incr latency, flattened prosody. thoughts linear. no overt expression of delusions or paranoia, but seems less mistrustful and guarded. affect hypo-intense, non- labile. mood a little better. no SI/HI/AVH expressed. Diagnostics Vital Signs (24Hr): Vital Signs - 24 hr 11/18/21 21:05 11/19/21 08:36 Temperature 98.1 F 98.1 F Pulse Rate 104 H 86 Respiratory Rate 16 16 Blood Pressure 135/77 133/87 Pulse Oximetry 97 100 Oxygen Delivery Method Room Air Room Air BMI result Body Mass Index 25.8 Labs Results: 11/09/21 22:31 11/09/21 22:31 Medications Medications Current Medications Acetaminophen (Acetaminophen 325 Mg Tablet) 650 mg PO Q6H PRN PRN Reason: Headache/Pain Mild Scale (1-3) Last Admin: 11/16/21 21:36 Dose: 650 mg Al Hydroxide/Mg Hydroxide (Magnesium Hydrox/Alum Hydrox 30 Ml Oral.Susp) 30 ml PO Q6H PRN PRN Reason: Heartburn/Nausea Hydroxyzine HCl (Hydroxyzine Hcl 25 Mg Tablet) 25 mg PO Q6H PRN PRN Reason: Anxiety Last Admin: 11/17/21 01:38 Dose: 25 mg [place] Carbonate ([place] Carbonate Er 450 Mg Tablet.Er) 450 mg PO BID [facility] Last Admin: 11/19/21 08:11 Dose: 450 mg Lorazepam (Lorazepam 1 Mg Tablet) 1 mg PO BID [facility] Magnesium Hydroxide (Milk Of Magnesia 30 Ml Oral.Susp) 30 ml PO DAILY PRN PRN Reason: Constipation Olanzapine (Olanzapine Odt 10 Mg Tab.Rapdis) 15 mg TRANSLINGU BEDTIME [facility] Olanzapine (Olanzapine Odt 10 Mg Tab.Rapdis) 5 mg TRANSLINGU BEDTIME PRN PRN Reason: insomnia Allergies Allergies Allergy/AdvReac Type Severity Reaction Status Date / Time No Known Allergies Allergy Unverified 03/20/21 14:35 Assessment & Plan Assessment & Plan (1) Bipolar disorder: Status: Acute Code(s): F31.9 - Bipolar disorder, unspecified Plan offer zyprexa 10 mg at HS. T/C need for commitment. 11/13 continue olanzapine, given ativan for catatonia s/s thought blocking, blank stare, delayed response. 11/14: pt compliant with HS zyprexa x 2 nights. slowed down, looking catatonic, seems to have responded to ativan started yesterday. ativan 1 TID yesterday escalated to 1 QID today due to continuing to appear quite slowed this morning after initial ativan dose of the day. 11/15: Continue current regimen and plans 11/16: Continue current plans and regimen 11/17: start lithium 450 BID. begin ativan taper tomorrow. add zyprexa 5 QHS PRN insomnia. calm, cooperative, no overt paranoia or delusional content. 11/18: decrease ativan to 1 mg TID, otherwise continue current mgmt. 11/19: decrease ativan to 1 BID. signed three-day notice, planning for wednesday discharge currently. MD encouraged pt to increase lithium dosing to 1050 prior to discharge, pt to review med ed prior to decision. I spent ___25___ minutes with the patient and/or on the patient floor today, greater than?50% of which was spent counseling/coordinating care. Patient educated on: diagnosis and medication risk/benefits Reason for contiued inpatient stay Substantial Risk for: inability to function and rapid decompensation
[2021-11-19 20:34] VITALS: BP 121/77; PULSE 96; RESP 16; TEMP 36.9; O2SAT 98
[2021-11-19] MEDS: OLANZapine ODT 10 MG TAB.RAPDIS 15 MG TRANSLINGU (21:10)
[2021-11-20 09:00] VITALS: BP 130/84; PULSE 88; RESP 16; TEMP 36.3; O2SAT 98
[2021-11-20] MEDS: LORazepam 1 MG TABLET PO (09:12)
[2021-11-20] MEDS: Lithium Carbonate ER 450 MG TABLET.ER PO ×2 (09:12→20:34)
--- NOTE | 2021-11-20 14:29 | P.PNPSI_ITS ---
Subjective Subjective Date of Service: 11/20/21 Reason For Visit: paranoia, delusional d/o Interim History: calm, cooperative. soft-spoken. vague, evasive. still paranoid, carrying his belongings around. resistant to lithium dosing increase. begrudgingly agrees to collaborate with SW on arranging for aftercare appointments by allowing her to give his telephone number to outpt providers. planning for discharge tomorrow. per staff, 3-day up tomorrow. anx 5. brighter. active eves. generally isolative. eating and sleeping well. Mental Status Exam Mental Status Exam Narrative: not agitated. far less delayed. no PMA/PMR. generally cooperative with interview. speech decr in rate, decr amount, normal loudness, incr latency, flattened prosody. thoughts linear. no overt expression of delusions or paranoia, less mistrustful and guarded than at admission. affect hypo-intense, non-labile. no SI/HI/AVH expressed. Diagnostics Vital Signs (24Hr): Vital Signs - 24 hr 11/19/21 20:34 11/20/21 09:00 Temperature 98.4 F 97.3 F Pulse Rate 96 88 Respiratory Rate 16 16 Blood Pressure 121/77 130/84 Pulse Oximetry 98 98 Oxygen Delivery Method Room Air Room Air BMI result Body Mass Index 25.8 Labs Results: 11/09/21 22:31 11/09/21 22:31 Medications Medications Current Medications Acetaminophen (Acetaminophen 325 Mg Tablet) 650 mg PO Q6H PRN PRN Reason: Headache/Pain Mild Scale (1-3) Last Admin: 11/16/21 21:36 Dose: 650 mg Al Hydroxide/Mg Hydroxide (Magnesium Hydrox/Alum Hydrox 30 Ml Oral.Susp) 30 ml PO Q6H PRN PRN Reason: Heartburn/Nausea Hydroxyzine HCl (Hydroxyzine Hcl 25 Mg Tablet) 25 mg PO Q6H PRN PRN Reason: Anxiety Last Admin: 11/17/21 01:38 Dose: 25 mg [place] Carbonate ([place] Carbonate Er 450 Mg Tablet.Er) 450 mg PO BID [facility] Last Admin: 11/20/21 09:12 Dose: 450 mg Lorazepam (Lorazepam 1 Mg Tablet) 1 mg PO DAILY [facility] Magnesium Hydroxide (Milk Of Magnesia 30 Ml Oral.Susp) 30 ml PO DAILY PRN PRN Reason: Constipation Olanzapine (Olanzapine Odt 10 Mg Tab.Rapdis) 15 mg TRANSLINGU BEDTIME [facility] Last Admin: 11/19/21 21:10 Dose: 15 mg Olanzapine (Olanzapine Odt 10 Mg Tab.Rapdis) 5 mg TRANSLINGU BEDTIME PRN PRN Reason: insomnia Allergies Allergies Allergy/AdvReac Type Severity Reaction Status Date / Time No Known Allergies Allergy Unverified 03/20/21 14:35 Assessment & Plan Assessment & Plan (1) Bipolar disorder: Status: Acute Code(s): F31.9 - Bipolar disorder, unspecified Plan offer zyprexa 10 mg at HS. T/C need for commitment. 11/13 continue olanzapine, given ativan for catatonia s/s thought blocking, blank stare, delayed response. 11/14: pt compliant with HS zyprexa x 2 nights. slowed down, looking catatonic, seems to have responded to ativan started yesterday. ativan 1 TID yesterday escalated to 1 QID today due to continuing to appear quite slowed this morning after initial ativan dose of the day. 11/15: Continue current regimen and plans 11/16: Continue current plans and regimen 11/17: start lithium 450 BID. begin ativan taper tomorrow. add zyprexa 5 QHS PRN insomnia. calm, cooperative, no overt paranoia or delusional content. 11/18: decrease ativan to 1 mg TID, otherwise continue current mgmt. 11/19: decrease ativan to 1 BID. signed three-day notice, planning for wednesday discharge currently. MD encouraged pt to increase lithium dosing to 1050 prior to discharge, pt to review med ed prior to decision. 11/20: pt received med ed, declines lithium dosing increase. 3-day up tomorrow, planning for discharge. stable clinically. better, but not well. I spent ___25___ minutes with the patient and/or on the patient floor today, greater than?50% of which was spent counseling/coordinating care. Reason for contiued inpatient stay Substantial Risk for: inability to function and rapid decompensation
[2021-11-20] MEDS: OLANZapine ODT 10 MG TAB.RAPDIS 15 MG TRANSLINGU (20:34)
[2021-11-20 20:38] VITALS: BP 144/87; PULSE 103; TEMP 36.7; O2SAT 97
[2021-11-21 08:27] VITALS: BP 147/92; PULSE 83; TEMP 36.6; O2SAT 100
[2021-11-21] MEDS: Lithium Carbonate ER 450 MG TABLET.ER PO (09:03)
[2021-11-21] MEDS: LORazepam 1 MG TABLET PO (09:04)
--- NOTE | 2021-11-21 11:15 | PM.PSYDC ---
DS: Providers Provider Date of Service: 11/21/21 Date of admission: 11/10/21 18:39 Primary care physician: None Physician DS: Diagnosis Discharge Diagnosis (1) Bipolar disorder: Status: Acute DS: Medications Discharge Medications Home Medications: Previous Rx's Medication Instructions Recorded lithium carbonate 450 mg 450 mg PO BID 30 days #60 tabs 11/21/21 tablet,extended release olanzapine 15 mg tablet 15 mg PO BEDTIME 30 days #30 tabs 11/21/21 Mental Status Exam Mental Status Exam Narrative: not agitated. far less delayed. no PMA/PMR. generally cooperative with interview. speech decr in rate, decr amount, normal loudness, incr latency, flattened prosody. thoughts linear. no overt expression of delusions or paranoia, less mistrustful and guarded than at admission. affect hypo-intense, non-labile. no SI/HI/AVH. DS: Summary Hospital Course Hospital Course: per 11/11 admission note: pt called to the attention of crisis by his mother, who reported he was paranoid, delusional, irritable, and verbally aggressive and has been off of his medications for months now. ? she reported an acute worsening over the week prior to presentation.? she stated he denied SI/HI to her.? on interview with rack production worker he expressed a great deal of anxiety about feeling trapped, feeling people are after him.? he has no mental health providers currently.? crisis staff described him as sporadically responding to internal stimuli. ? on interview with MD, pt is generally not cooeprative with answering questions, demonstrating clear paranoia and delusions about interviewer.? in response to opening questions, pt replied, what happens if i refuse the hypnosis? ? he later began referring to this fiction writer as Dr. Ayala, refusing to accept 's identity as displayed on ID badge.? he asserted has worked at [employer] and refused to accept MD's response that had never worked there.? he demanded MD confess what he had done, but would not explain what he believed MD had done.? he said, i'm sure you did the same shit to shagufta's kids, too, and would not explain who shagufta is.? ultimately, typical historical information taken in a psychiatric evaluation was not able to be had.? explained calero's warning to pt, 3-day notice option.? informed pt he believed pt has mental illness and should take medication and that such medication would be offered to him.? per staff, pt did not sleep at all the night he was in the pod, nor did he sleep last night (at least two consecutive nights with no sleep). Past Psychiatric History: h/o outpt Tx with meds and therapist.? details unknown. Medical Evaluation Reviewed: Yes [facility] Family History: pt denied FH of mental illness or substance use disorder to crisis staff Social History: born in [place], raised mostly by his mother.? has a younger brother.? single, never , no children.? unemployed.? HS grad, had an IEP.? bio-father not active in his life. Substance History: pt has denied substance use to crisis staff. Trauma History: christianne reported trauma to crisis staff but did not elaborate. Precis: 11/11: offer zyprexa 10 mg at HS. T/C need for commitment. 11/13 continue olanzapine, given ativan for catatonia s/s thought blocking, blank stare, delayed response. 11/14: pt compliant with HS zyprexa x 2 nights.? slowed down, looking catatonic, seems to have responded to ativan started yesterday.? ativan 1 TID yesterday escalated to 1 QID today due to continuing to appear quite slowed this morning after initial ativan dose of the day. 11/15: Continue current regimen and plans 11/16: Continue current plans and regimen 11/17: start lithium 450 BID.? begin ativan taper tomorrow.? add zyprexa 5 QHS PRN insomnia.? calm, cooperative, no overt paranoia or delusional content. 11/18: decrease ativan to 1 mg TID, otherwise continue current mgmt. 11/19: decrease ativan to 1 BID.? signed three-day notice, planning for wednesday discharge currently.? encouraged pt to increase lithium dosing to 1050 prior to discharge, pt to review med ed prior to decision. 11/20: pt received med ed, declines lithium dosing increase.? 3-day up tomorrow, planning for discharge.? stable clinically.? better, but not well. 11/21: 3 day matured, not at imminent risk. discharged per his request. Time Spent with Patient Time attestation: Total time spent providing and/or coordinating discharge services: Time spent: Greater than 30 minutes Discharge Plan Discharge Anticipated Discharge Date/Time: 11/21/21 12:00 Patient Disposition: Home, Self-Care Discharge Diagnosis: Bipolar I Disorder, Most Recent Episode Manic Referrals: Jasmine Allen (Therapy) [Other] - 11/24/21 12:00 pm (IN OFFICE APPOINTMENT) Lizette Su (Psychiatry) [Other] - 12/16/21 11:00 am (IN OFFICE APPOINTMENT -Psychiatric Evaluation ) Lizette Su (Psychiatry) [Other] - 01/14/22 12:00 pm (IN OFFICE APPOINTMENT -Medication Management ) [facility] [Physician] - 1 Week Discharge Medications: New lithium carbonate 450 mg Tablet Extended Release 450 mg PO BID 30 Days Qty: 60 0RF olanzapine 15 mg tablet 15 mg PO BEDTIME 30 Days Qty: 30 0RF Discharge Orders: Discharge Order (Routine); Ordered 11/21/21 Ordered By: Manuel Adams Diet: Advance to usual diet Activity on Discharge: As tolerated Stand Alone Forms: Patient Portal Discharge page, Community Support Care Plan Goals: remain safe and stable in the outpatient treatment setting Health Concerns: none Plan of Treatment: take medications as prescribed, attend appointments as scheduled Assessment: not at imminent risk of harm to self or others Discharge Date/Time: 11/21/21 11:59
== END 2021-11-21 11:59 | disposition home or self-care (01) | DRG 753 ==
LOC: HO.ED 11-10 16:29 → HO.PADLT16 11-10 18:45
PROVIDERS: Registered Nurse; Admitting Provider Psychiatry & Neurology Psychiatry; Emergency Provider Internal Medicine; Visit Provider Psychiatry & Neurology Psychiatry
DX: F31.9 Bipolar disorder, unspecified (principal); Z20.822 Contact with and (suspected) exposure to COVID-19; Z79.899 Other long term (current) drug therapy
CPT/HCPCS: 36415; 80053; 80061; 80307; 82607; 82746; 83036; 83735; 84439; 84443; 85025; 87635; 93005; 99284

== ENCOUNTER 2021-12-19 07:44 | Outpatient (REF) | payer OTHER, SELFPAY ==
[2021-12-19 08:49] LABS: Alanine Aminotransferase 16 U/L (0-40); Albumin Level 4.2 g/dL (3.5-5.0); Alkaline Phosphatase 65 U/L (39-117); Anion Gap 14 (12-20); Aspartate Amino Transferase 17 U/L (5-37); Bilirubin Total 0.6 mg/dL (0.0-1.0); Blood Urea Nitrogen 12 mg/dL (9-16); Calcium 9.2 mg/dL (8.4-10.2); Carbon Dioxide 29 mmol/L (22-29); Chloride 105 mmol/L (96-108); Cholesterol 161 mg/dL; Estimated Glomerular Filt Rate > 60; Glucose Fasting 108 mg/dL (60-99); HDL Cholesterol 57 mg/dL; LDL Cholesterol Calculated 91 mg/dl; Potassium 4.6 mmol/L (3.3-5.1); Sodium 143 mmol/L (135-145); Total Protein 6.4 g/dL (6.5-8.0); Triglycerides 67 mg/dL
[2021-12-19 08:56] LABS: Lithium 0.37 mmol/L (0.60-1.20)
[2021-12-19 09:11] LABS: Thyroid Stimulating Hormone 2.69 uIU/mL (0.32-4.0)
== END 2021-12-19 07:45 | disposition home or self-care (01) ==
LOC: HO.LAB 07:44
PROVIDERS: Visit Provider Psychiatry & Neurology Psychiatry
DX: Z79.899 Other long term (current) drug therapy (principal)
CPT/HCPCS: 36415; 80053; 80061; 80178; 84443